=== PATIENT | male | born 1965 ===

== ENCOUNTER 2018-06-11 00:20 | Outpatient (CLI) | payer BC, SELFPAY ==
--- NOTE | 2018-06-11 15:48 | DI.MRI_ITS ---
SYMPTOMS/DIAGNOSIS: INABILITY TO EXTERNALLY ROTATE, JOINT INSTABILITY, H/O MASSIVE ROTATOR CUFF REPAIR, RETORN ROTATOR CUFF MRI OF THE RIGHT SHOULDER: Routine noncontrast examination was performed. Comparison is 01/28/17. The infraspinatus and teres minor tendons are intact. There does appear to be increased signal within the subscapularis tendon consistent with a partial tear. There also appears to be a tear of the supraspinatus tendon anteriorly. Moderate fatty atrophy of the supraspinatus muscle is noted. There is moderately severe fatty atrophy of the infraspinatus muscle. There is also T2 hyperintense signal within the infraspinatus muscle proximal to the tendon, suspicious for a tear. The subscapularis and teres minor muscles show normal signal and size. There is hyperintense T2 signal in the anterior aspect of the labrum suspicious for a tear. The remainder of the labrum is grossly unremarkable. The articular cartilage at the glenohumeral joint appears well maintained. There is artifact in the shoulder from the prior rotator cuff surgery. No findings to suggest an occult fracture or avascular necrosis are seen. Moderate degenerative changes are seen at the acromioclavicular joint. There is elevation of the humeral head relative to the glenoid. No evidence of a soft tissue mass or focal fluid collection is appreciated. IMPRESSION: 1. Findings of a tear of the supraspinatus tendon. 2. Findings suggestive of a tear of the anterior labrum. 3. Hyperintense signal within the infraspinatus muscle suspicious for a tear. 4. Hyperintense signal seen within the subscapularis tendon suspicious for a partial tear.
== END 2018-06-11 00:40 ==
PROVIDERS: PCP Nurse Practitioner Family; Visit Provider Orthopaedic Surgery
DX: M25.511 Pain in right shoulder (principal); M75.101 Unspecified rotator cuff tear or rupture of right shoulder, not specified as traumatic; M25.311 Other instability, right shoulder
CPT/HCPCS: 73218

== ENCOUNTER 2020-08-08 02:09 | Outpatient (CLI) | payer BC, SELFPAY ==
[2020-08-10 18:51] LABS: Patient Race White; SARS-CoV-2 RNA Undetected (Undetected); SARS-CoV-2 Specimen Source Nasal
== END 2020-08-08 02:29 ==
PROVIDERS: PCP Nurse Practitioner Family; Visit Provider Nurse Practitioner Family
DX: Z11.59 Encounter for screening for other viral diseases (principal)
CPT/HCPCS: U0003

== ENCOUNTER 2022-04-08 02:55 | Outpatient (CLI) | payer BC, SELFPAY ==
[2022-04-08 07:19] LABS: HCT 42.7 % (40.0-50.0); HGB 13.9 g/dL (13.5-17.5); MCHC 32.6 % (32.0-36.0); MCV 95 fL (80-95); MPV 9.4 fL (8.0-11.0); Platelet Count 241 10^3/uL (130-400); RBC 4.49 10^6/uL (4.36-5.78); RDW 12.7 % (11.8-14.1); RDW-SD 43.8 fL; WBC 5.99 10^3/uL (4.4-10.8)
[2022-04-08 08:01] LABS: ALT 32 U/L (16-63); AST 18 U/L (15-37); Alkaline Phosphatase 71 U/L (46-116); Anion Gap 6.6 mmol/L (3-11); BUN 20 mg/dL (7-18); Bilirubin, Total 0.6 mg/dL (0.2-1.0); CO2 28.4 mmol/L (21.0-32.0); CREATININE 1.3 mg/dL (0.70-1.30); Calculated LDL 143 mg/dL (<100); Chloride 106 mmol/L (98-107); Cholesterol 218 mg/dL (<200); Glucose 108 mg/dL (74-106); HDL Cholesterol 57 mg/dL (40-60); Potassium 4.2 mmol/L (3.5-5.1); Sodium 141 mmol/L (136-145); TSH (W/Ref FT4) 2.15 uIU/mL (0.36-3.74); Total Protein 7.2 g/dL (6.4-8.2); Triglyceride 93 mg/dL (<150)
[2022-04-08 09:27] LABS: Hemoglobin A1C 5.7 % (<5.7)
[2022-04-08 18:54] LABS: PSA, Screening 0.4 ng/mL (<=3.5)
[2022-04-17 16:21] LABS: Testosterone, Free 11.6 ng/dL (3.87-14.7); Testosterone, Total 477 ng/dL (240-950)
== END 2022-04-08 02:56 | disposition home or self-care (01) ==
LOC: LBO 02:57
PROVIDERS: PCP Nurse Practitioner Family; Visit Provider Nurse Practitioner
DX: R53.83 Other fatigue (principal); E78.5 Hyperlipidemia, unspecified; R73.01 Impaired fasting glucose; R39.11 Hesitancy of micturition; Z12.5 Encounter for screening for malignant neoplasm of prostate
CPT/HCPCS: 36415; 80053; 80061; 84153; 84402; 84403; 85027; 83036; 84443

== ENCOUNTER 2022-09-23 03:00 | Emergency (ER) | payer BC, SELFPAY ==
--- NOTE | 2022-09-23 03:00 | RT.EKG_ITS ---
APPROVED REPORT Exam: Resting ECG Reason for Exam: chest pain Patient Location: E HR:73 bpm ECG Measurements Heart Rate 73 AXIS OH 157 P 45 QRSd 89 QRS 35 QT 345 T 34 QTc 381 Conclusion Sinus rhythm...normal P axis, V-rate 60- 99 Consider left ventricular hypertrophy...(S V1+R V5/V6) >3.50mV. Sinus. Normal axis. LVH. No STEMI.
[2022-09-23 03:03] VITALS: BP 132/84; PULSE 92; RESP 16; TEMP 36.8; O2SAT 96
--- NOTE | 2022-09-23 03:21 | W.ED.GENAD ---
Discharge Plan Disposition Patient Disposition: Home Condition: Improving Discharge Details Clinical Impression: Chest wall muscle strain Primary Care Provider: Georgia Hairston ED Provider: Sheron Ornelas Home Meds and New Rx's Prescriptions: New methocarbamol 500 mg tablet 500 mg PO Q6H PRN (Reason: muscle spasm) Qty: 14 0RF Discharge Instructions Instructions: Muscle Strain (ED) Additional Instructions: Alternate ice and heat to the affected area(s) several times daily for 20 minutes at a time. Alternate tylenol and motrin as needed and directed for pain. A prescription for the muscle relaxer methocarbamol has been sent electronically to your pharmacy to take as needed and directed for pain. Follow-up with your primary care doctor in 1 week. Return to the emergency department with any worsening or new concerning symptoms. Discharge Data Discharge Physician: Sheron Ornelas Medical Decision Making 0310 -- 49-year-old male with history of GERD, hyperlipidemia, IBS presents with left-sided chest pain since he awoke yesterday morning that became worse last night while lying in bed. Patient states the pain is mainly worse when sitting up and laying on his back and is better when laying on his abdomen. EKG notes a rate of 73, sinus, normal axis, no STEMI and nondiagnostic. Patient appears significantly uncomfortable, mostly with position in the room. Attempted to lay flat and in too much pain. He has significant tenderness to palpation to the left anterior and lateral inferior ribs. There is no evidence of overlying rash or trauma. Suspect musculoskeletal etiology. History and presentation does not appear consistent with ACS, PE or dissection. Will give a dose of Toradol, Decadron IV, Valium p.o. and Lidoderm patch and reassess. 0405 --patient reassessed and he feels much better and is requesting to go home. Patient states his pain is much improved and he feels that he can find a comfortable position to sleep. A prescription for the muscle relaxer methocarbamol sent electronically to his pharmacy. Advised to follow up with the primary care doctor for re-evaluation. Usual and customary return precautions given prior to discharge. Medical Records Medical records reviewed: Yes I reviewed the patient's medical records. ECG Data Attestation: I personally reviewed and interpreted this ECG (s) as follows: Interpretation: Rate of 73, sinus, normal axis, LVH, no STEMI. HPI General Mode of arrival: ambulatory. Date/Time Provider Initiated Documentation: 09/23/22 03:01. Limitations to Documentation: no limitations. Information obtained by: patient. HPI Narrative: Patient is a 57-year-old male who presents with left-sided chest pain that he noted since he woke up yesterday morning. Patient states he was in [place] and slept in a bed that was uncomfortable and had pain in his left mid back and chest when he awoke. Patient states the pain was uncomfortable while sitting in the car on the way home. He states he was able to find a comfortable position last night laying on his belly but states then the pain worsened. He states he took 1000 mg of Tylenol a few hours ago without relief. He states he has not taken any ibuprofen for pain. Patient denies any fever, cough, abdominal pain, nausea, vomiting, dizziness. Patient states he mainly feels short of breath because it hurts to take a deep breath and move but denies any shortness of breath. Related Data Home Medications Medication Instructions Recorded Confirmed methocarbamol 500 mg tablet 500 mg PO Q6H PRN muscle spasm #14 09/23/22 tabs Previous Rx's Medication Instructions Recorded methocarbamol 500 mg tablet 500 mg PO Q6H PRN muscle spasm #14 09/23/22 tabs Allergies Allergy/AdvReac Type Severity Reaction Status Date / Time No Known Allergies Allergy Verified 09/23/22 03:14 General Stated Complaint: Chest Pain SHABANA: 3 Review of Systems All systems reviewed & are unremarkable except as noted in HPI and below Constitutional Constitutional: Reports as per HPI, Denies chills and Denies fever(s) Eyes Eyes: Denies blurry vision ENT Ears, Nose, Mouth, and Throat: Denies dizziness, Denies sore throat and Denies throat swelling Cardiovascular Cardiovascular: Reports chest pain and Denies dyspnea Respiratory Respiratory: Denies cough and Denies dyspnea Gastrointestinal Gastrointestinal: Denies abdominal pain, Denies diarrhea and Denies vomiting Genitourinary Genitourinary: Denies hematuria and Denies dysuria Musculoskeletal Musculoskeletal: Denies back pain and Denies numbness Integumentary/Breasts Skin/Breast: Denies lesions and Denies rash Neurologic Neurologic: Denies dizziness, Denies localized weakness and Denies numbness Allergic/Immunologic Allergic/Immunologic: Denies throat swelling PFSH All Active Problems (Updated 09/23/22 @ 03:35 by Sheron Ornelas DO) Chest wall muscle strain (Acute) Decreased right shoulder range of motion (Acute) Chronic left hip pain (Acute) IFG (impaired fasting glucose) (Chronic 02/14/17) Medical History (Updated 09/23/22 @ 03:35 by Sheron Ornelas DO) Erosive gastritis (01/12/15) by EGD GERD (gastroesophageal reflux disease) Hyperlipidemia, unspecified (02/14/17) 02/2017 labwork: 10-year ASCVD risk = ~2.7% --> not statin indicated at this time Irritable bowel syndrome (01/14/17) Osteoarthritis of left hip (01/14/17) Advanced Surgical History Cx fusion C4-7 (01/14/17) Discectomy; Laminectomy Endoscopy (01/12/15) Erosive gastritis Nasal septoplasty (11/30/13) Repair, Rotator Cuff (03/05/17) [facility] Total replacement of hip (07/29/17) Dr Nelda Patel L hip Family History (Updated 03/25/22 @ 08:43 by Princess Perez RN) Mother Uterine cancer Father , Renal CA at age 60. Neoplasm Renal CA Brother , [place] at age 60. Myocardial infarction Neoplasm Prostate CA Parkinson's disease Social History (Updated 03/25/22 @ 08:42 by Princess Perez RN) Smoking/Tobacco Use Status: Never Smoking risk assessment performed?: Yes Alcohol Intake: current Alcohol Intake frequency: holidays/special occasions only Substance use type: does not use Adopted: No Caregiver/Support person: No Foster care: No Household members: spouse and children Housing: house Number of Children: 2 Communication Needs: None Education Level: master's degree Do you need help understanding health information?: Rarely current occupation: [employer] Pets and animals: Yes Pets and animals: cat(s) and dog(s) Sexually active: No Do you think of yourself as: straight/heterosexual Current gender identity: male What is your relationship status?: How often do you talk on the phone with friends or family?: once per week How often do you get together with friends or relatives?: once per week Do you belong to any clubs or organized social groups?: no Panel score (0-1 are the most socially isolated patients): 1 What type of physical activity do you participate in: other Details: Strength Training Duration: 15-30 minutes/day Frequency: 3-4 times per week Emmie/Episcopalian: None Special emmie needs: No Seatbelt use: always Helmet use: Yes Drive intox or ride w/intox driver/guide: No Working smoke detector in home: Yes Fire extinguisher in home: Yes Carbon monox detector in home: Yes Do you feel safe at home: Yes Do you feel safe in your relationship?: Yes Exam Const General: cooperative and uncomfortable Orientation: alert, awake and oriented x3 HENMT Head: normal to inspection Face and sinus: normal facial exam Eyes General: appearance normal, both eyes and all related structures Pupils: PERRL EOM: EOM intact bilaterally Neck Neck: normal visual inspection and No submandibular swelling Lymphatic: no lymphadenopathy noted Chest Chest: normal inspection of the chest and no tenderness Chest/axillae images: 1. Localized area of tenderness to palpation at the anterior and lateral inferior ribs. There is no edema, erythema, ecchymosis, rash or lesions. Resp Effort & Inspection: normal respiratory effort and able to speak in complete sentences Auscultation: clear to auscultation bilaterally Cardio Rate: regular rate Rhythm: regular rhythm GI Inspection: normal to inspection Palpation: soft, not firm, not rigid and nontender Auscultation: hypoactive bowel sounds Back/Spine/Pelvis Thoracic/Lumbar Spine: thoracic and lumbar spine normal to inspection and No paraspinal tenderness Skin General skin exam: no rashes or lesions noted Neuro General: patient alert, patient awake and patient oriented x3 Cognition: normal cognition Speech: speech normal Motor: muscle tone normal throughout Sensory Exam: no sensory deficits noted Extrem General: normal to inspection, full ROM, capillary refill normal, no calf tenderness bilaterally and no edema Psych Appearance: grossly normal Mental Status: mental status grossly normal Speech and Movement: speech and movement normal Affect: normal affect Course Vital Signs Vital signs: Vital Signs Temperature 98.2 F 09/23/22 03:03 Pulse 92 H 09/23/22 03:03 Respiratory Rate 16 09/23/22 03:03 Blood Pressure 132/84 09/23/22 03:03 Pulse Oximetry 96 09/23/22 03:03 Temperature 98.2 F 09/23/22 03:03 Temperature Source Tympanic 09/23/22 03:03 Pulse 92 H 09/23/22 03:03 Respiratory Rate 16 09/23/22 03:03 Respiratory Effort 09/23/22 03:08 Respiratory Depth Normal 09/23/22 03:08 Respiratory Pattern Normal 09/23/22 03:08 Blood Pressure 132/84 09/23/22 03:03 Blood Pressure Position Sitting 09/23/22 03:03 Pulse Oximetry 96 09/23/22 03:03 Oxygen Delivery Method Room Air 09/23/22 03:03 Oxygen Flow Rate 0 09/23/22 03:03 Pain Level 8 09/23/22 03:03
[2022-09-23] MEDS: diazePAM 5 MG TAB PO (03:28)
[2022-09-23] MEDS: Dexamethasone 10 MG/ML VIAL IVP (03:28)
[2022-09-23] MEDS: Ketorolac 30 MG/ML VIAL IVP (03:28)
[2022-09-23] MEDS: Lidocaine 5% Patch 1 PATCH TP (03:28)
== END 2022-09-23 04:08 | disposition home or self-care (01) ==
PROVIDERS: Emergency Provider Physician Assistant; PCP Nurse Practitioner Family
DX: S29.011A Strain of muscle and tendon of front wall of thorax, initial encounter (principal); X58.XXXA Exposure to other specified factors, initial encounter
CPT/HCPCS: 93005; 96374; 96375; 99284; 93010; J1100; J1885

== ENCOUNTER 2023-03-28 01:04 | Outpatient (CLI) | payer OTHER, SELFPAY ==
--- NOTE | 2023-03-28 06:45 | DI.RAD_ITS ---
Exam(s) XR HEEL RT OS CALCIS EXAM: XR HEEL RT OS CALCIS CLINICAL HISTORY: pain for 2 mo after running,? fx,m79.741. TECHNIQUE: 2D digital imaging was performed. Two views. COMPARISON: No exams were available for comparison FINDINGS: BONES: No acute fracture is present. No bony destructive lesion is seen. JOINTS: No dislocation present. No significant degenerative changes visible. SOFT TISSUE: Mild vascular calcifications IMPRESSION: Unremarkable radiographs of the right calcaneus. DATA REPOSITORY: RADIATION DOSE DELIVERED:
== END 2023-03-28 01:24 ==
PROVIDERS: PCP Nurse Practitioner Family; Visit Provider Nurse Practitioner Family
DX: M79.671 Pain in right foot (principal)
CPT/HCPCS: 73650

== ENCOUNTER 2024-06-28 01:12 | Outpatient (CLI) | payer BC, SELFPAY ==
--- NOTE | 2024-06-28 06:15 | DI.MRI_ITS ---
Exam(s) MR UPPER JOINT LT WO EXAM: MR UPPER JOINT LT WO CLINICAL HISTORY: severe left shoulder pain 1 mos,DECREASED RANGE OF MOTION,M25.612,M25.512 TECHNIQUE: Multiplanar multisequence MRI of the shoulder was performed. COMPARISON: MR MR upper extremity RT wo from 06/11/2018 CR XR HEEL RT OS CALCIS from 03/28/2023 FINDINGS: MARROW:There is no evidence of fracture, Hill-Sachs deformity, nor ominous osseous lesions. There are degenerative subarticular cysts in the lateral aspect of the humeral head/greater tuberosity. GLENOHUMERAL JOINT: There is no prominent joint effusion nor loose intra-articular bodies. There is mild loss of articular cartilage. No degenerative subarticular cysts evident. No osteophytes seen. ROTATOR CUFF MECHANISM: AC JOINT/ACROMIUM: Moderate degenerative changes in the AC joint. Some bone edema seen the clavicula r side of the joint as well as small degenerative subarticular cyst on the clavicular side of the griselda nt. Small downgoing osteophytes noted on the clavicular side of the joint with some impingement.. There is no evidence of os acromiale. Supraspinatus: There is full-thickness tearing of the anterior aspect of the supraspinatus tendon. S ome fluid is seen in the subacromial bursal space. No muscle atrophy. Infraspinatus: Intact. No evidence of tear nor muscle atrophy. Teres Minor: Intact. No evidence of tear nor muscle atrophy. Subscapularis/anterior cuff: Intact. No abnormal signal at the level of the multipennate insertional fibers. No significant tear nor atrophy. BICEPS TENDON: Exhibits normal position within the intertubercular groove. No evidence of tear. No tenosynovitis. LABRUM: No obvious tear of the superior labrum posterior to the biceps insertion. Posterior labrum a ppears intact. There is radial tear in the anterior labrum. No evidence of paralabral cyst. Some l axity of the inferior glenohumeral ligament noted but no high-grade tear. QUADRILATERAL SPACE: No evidence of mass in the region of the axillary nerve and dorsal circumflex hu meral vessels. Visualized triceps muscle at this level appears unremarkable. IMPRESSION: 1. There is an area of full-thickness tearing in the anterior aspect of the supraspinatus tendon. No prominent retraction. No muscle atrophy. 2. Other 3 muscles of the rotator cuff mechanism are intact. 3. Radial tear noted in the anterior labrum. 4. Degenerative subarticular cysts are noted in the greater tuberosity on the lateral aspect of the humeral head. DATA REPOSITORY:
== END 2024-06-28 01:32 ==
LOC: DI 01:13
PROVIDERS: PCP Nurse Practitioner; Visit Provider Nurse Practitioner
DX: M25.512 Pain in left shoulder (principal); M25.612 Stiffness of left shoulder, not elsewhere classified
CPT/HCPCS: 73221

== ENCOUNTER 2024-07-27 11:57 | Day surgery (SDC) | payer BC, SELFPAY ==
--- NOTE | 2024-07-27 05:02 | ANES.PREOP_ITS ---
General Info Date of Service Date Performed: 07/27/24 Height: 6 ft Weight: 81.193 kg Body Mass Index (BMI): 24.3 Surgical Procedure: Operation Date: 07/27/24 12:20 Proposed Procedure Side Surgeon p Colonoscopy Rowdy Sheppard MD Meds Allergies and Home Medications Allergies Allergy/AdvReac Type Severity Reaction Status Date / Time No Known Allergies Allergy Verified 07/27/24 12:14 Home Medication ?Medication ?Instructions ?Recorded bisacodyl 5 mg tablet,delayed 5 mg PO ONCE Colonoscopy Bowel 07/23/24 release Prep #4 tabs polyethylene glycol 3350 17 238 g PO ONCE #238 grams 07/23/24 gram/dose oral powder Current Visit Medications: Current Medications Generic Name Dose Route Start Last Admin Trade Name Freq PRN Reason Stop Dose Admin Ringer's Solution 1,000 mls @ 80 mls/hr 07/27/24 06:00 IV 07/27/24 23:59 INFUSION DEBORAH IV Miscellaneous Supplies 1 each 07/27/24 06:00 Iv Access IV 07/27/24 23:59 DIRECTED DEBORAH Sodium Chloride 0 ml 07/27/24 06:00 Normal Saline Flush 10 Ml Syr IV 07/27/24 23:59 PRN PRN Sodium Chloride 0 ml 07/27/24 06:00 Normal Saline 10 Ml Vial IJ 07/27/24 23:59 DIRECTED PRN Sterile Water 0 ml 07/27/24 06:00 Water,Injection,Sterile 10 Ml Vial IJ 07/27/24 23:59 DIRECTED PRN PFSH Active Problems Active Problems: Problem Status Onset Code COVID Acute ~07/2023 U07.1 Contusion of right heel Acute S90.31XA Plantar fasciitis of right foot Acute M72.2 Pain of right heel Acute M79.671 Decreased right shoulder range of motion Acute M25.611 Chronic left hip pain Acute M25.552, G89.29 IFG (impaired fasting glucose) Chronic 02/14/17 R73.01 Hyperlipidemia, unspecified Acute 02/14/17 E78.5 Medical History Medical History Osteoarthritis of left hip (01/14/17) Advanced Irritable bowel syndrome (01/14/17) Pt. states not official dx Erosive gastritis (01/12/15) by EGD Pt. states this was never an actual dx startes this was told to him by an MD in [place] during the procedure. GERD (gastroesophageal reflux disease) Surgical History Surgical History Total replacement of hip (07/29/17) Dr Nelda Lafleur hip Repair, Rotator Cuff (03/05/17) [facility] -[facility] Nasal septoplasty (11/30/13) Endoscopy (01/12/15) Erosive gastritis Discectomy; Laminectomy Cx fusion C4-7 (01/14/17) Tobacco Smoking/Tobacco Use Status: Never Passive smoking exposure: No Alcohol Alcohol Intake: current Alcohol intake frequency: a few times a month Substance Use Substance use: Socially Substance use type: marijuana Vital Signs and Lab Results Vital Signs Most Recent Vital Signs in EMR: Pulse Resp BP Pulse Ox 47 L 16 116/68 98 07/27/24 12:08 07/27/24 12:08 07/27/24 12:08 07/27/24 12:08 Lab Results Blood Type / Crossmatch: No Data to Display Complete Blood Count: No Data to Display Complete Metabolic Panel: No Data to Display Liver Function Panel: No Data to Display Coagulation Panel: No Data to Display Cardiac Panel: No Data to Display Arterial Blood Gas: No Data to Display Venous Blood Gas: No Data to Display Pancreas Panel: No Data to Display Thyroid Panel: No Data to Display Infectious Disease: No Data to Display Blood Cultures: No Data to Display Toxicology Panel: No Data to Display Anesthesia Assessment and Plan Anesthesia History Personal History: No History of Anesthesia Complications Family History: No Family History of Anesthesia Complications Exercise Tolerance Exercise Tolerance: Metabolic Equivalents>4 Cardiac & Pulmonary Exam Cardiac Exam: Normal S1/S2 Heart Sounds Pulmonary Exam: Clear Bilateral Breath Sounds Implantable Cardiac Device Does patient have a Pacemaker or an ICD?: No Airway Exam Known Difficult Airway: No Mallampati Class: 3 Mouth Opening: Normal (> 3cm) Thyromental Distance: Greater than 3 cm Neck Range of Motion: Full ROM Neck Circumference: Normal Teeth Condition: Normal Dentition ASA Classification ASA Score: ASA 2 Emergency Case?: No NPO Status NPO Status: NPO Clears >2 hours, Solids >8 hours Anesthesia Plan Resuscitation Status: Full Code Anesthesia Technique: General Anesthesia Airway Planned: Natural Airway Monitors Used: Standard Monitors Preoperative Comments:: 59 yo male for colo. Sig PMHx: GERD/gastritis (not an issue), IBS, LBP/discectomy/lami, c4-7 fusion, never smoker. EKG: sinus, LVH.
[2024-07-27 12:08] VITALS: BP 116/68; PULSE 47; RESP 16; O2SAT 98
[2024-07-27] MEDS: Normal Saline Flush 10 ML SYR IV (12:24)
[2024-07-27 12:37] VITALS: BMI 24.3
--- NOTE | 2024-07-27 12:51 | W.COLOREPORT ---
Date of service: 07/27/24 Time of Service: 12:52 Colonoscopy Report Procedure Description: PROCEDURES PERFORMED: 1. Colonoscopy PREOPERATIVE DIAGNOSIS: Surveillance colonoscopy POSTOPERATIVE DIAGNOSIS: grade 2 internal hemorrhoids SURGEON: Ananda Sheppard MD INDICATION for procedure: The patient is a 59-year-old man with no family history of colon cancer and no significant findings on his previous colonoscopy 10 years ago. He has no symptoms of concern. Due for screening/surveillance. FINDINGS: Normal terminal ileum. Normal colon. No polyps. No inflammation. No obvious diverticular disease. In the rectum, grade 1?2 internal hemorrhoids are present at all 3 columns. SURVEILLANCE interval/FOLLOW-UP: 10 years SPECIMENS: EBL: Minimal COMPLICATIONS: None QUALITY of prep: Excellent Procedure in detail: The patient gave written consent and was in agreement with the indications, the potential risks as well as the benefits of the procedure. They were taken to the endoscopy suite and laid in the left lateral decubitus position. A timeout was performed and anesthesia was administered which was tolerated well. I started the procedure. Digital rectal and visual examination was performed and grossly within normal limits. A well-lubricated flexible colonoscope was then introduced and passed without any notable difficulty all the way to the cecum identified by the ileocecal valve and the appendiceal orifice. The terminal ileum was intubated and looked normal. The scope was then slowly withdrawn with the above-noted findings. The patient tolerated the procedure well and was taken to the PACU in hemodynamically stable condition.
--- NOTE | 2024-07-27 12:52 | W.PM.DSUDISC ---
Date of service: 07/27/24 Time of Service: 12:52 Discharge Plan Disposition Patient Disposition: Home Condition: Good Discharge Details Attending Provider: Rowdy Sheppard Primary Care Provider: Anna Marie Kim Home Meds and New Rx's Prescriptions: No Action bisacodyl 5 mg tablet,delayed release (DR/EC) 5 mg PO ONCE Qty: 4 0RF Rx Instructions: Per Colonoscopy bowel prep instructions polyethylene glycol 3350 17 gram/dose powder 238 g PO ONCE Qty: 238 0RF Rx Instructions: For Colonoscopy bowel prep, as directed by office Discharge Instructions Additional Instructions: FINDINGS: Your colon and rectum appear healthy. There were no polyps found. No inflammation. Nothing really concerning. You do have very mild internal hemorrhoid disease which is extremely common, benign and nothing needs to be done about it if it does not bother you. Repeat another colonoscopy in 10 years. Activity:: Activity as Tolerated Diet:: As Tolerated
[2024-07-27 13:26] VITALS: BP 98/75; PULSE 57; RESP 16; TEMP 36.2; O2SAT 95
--- NOTE | 2024-07-27 13:37 | W.ANESPOSTOP ---
Postoperative Evaluation Date, Time and Location Date Performed: 07/27/24 Time Performed: 13:32 Patient Location: Day Surgery Unit Vital Signs Most Recent Imported Vital Signs: Most Recent Vital Signs Pulse Resp BP Pulse Ox 47 L 16 116/68 98 07/27/24 12:08 07/27/24 12:08 07/27/24 12:08 07/27/24 12:08 Pain Score Most Recent Pain Score: Most Recent Pain Score Pain Level 0 07/27/24 12:08 Assessment Mental Status: Awake (Alert & Oriented to Patient Baseline) Airway and Respiratory Function: Patent airway with normal (patient baseline) respiratory exam Cardiovascular Function: Hemodynamically Stable Hydration Status: Adequately Hydrated Nausea & Vomiting: No Nausea or Vomiting Pain: Pt. Denies Any Pain Peripheral Nerve Block: Patient did not receive a nerve block
[2024-07-27 14:06] VITALS: BP 113/78; PULSE 54; RESP 16; TEMP 36.5; O2SAT 96
== END 2024-07-27 14:09 | disposition home or self-care (01) ==
PROVIDERS: PCP Nurse Practitioner; Visit Provider Student in an Organized Health Care Education/Training Program
PROC: 0DJD8ZZ Inspection of Lower Intestinal Tract, Via Natural or Artificial Opening Endoscopic (ICD-10-PCS; CPT 45378; principal; 2024-07-27 12:15)
DX: Z12.11 Encounter for screening for malignant neoplasm of colon (principal); K64.1 Second degree hemorrhoids
CPT/HCPCS: 45378; 00123; J2704